=== PATIENT | female | born 1945 | race Caucasian/White ===

== ENCOUNTER → 2019-12-15 | Outpatient (CLI) | payer MEDICARE ==
--- NOTE | 2019-12-15 13:29 | REP ---
PA and lateral chest: There are no comparisons. The lung wu are hyperinflated. There are no infiltrates. There are no pleural effusions. There are no masses or nodules. Cardiac size is normal. The malia, mediastinum, skeletal structures are unremarkable. Impression: Essentially negative PA and lateral chest. Electronically Signed by Cecil Garcia MD 12/15/2019 01:21 P
== END ==
LOC: M LRY 12:50
PROVIDERS: ATTEND Nurse Practitioner Family
DX: R06.2 Wheezing (principal)